=== PATIENT | female | born 1955 | race American Indian/Alaskan Native ===

== ENCOUNTER → 2018-03-10 | Emergency (ER) | payer OTHER ==
[~2018-03-10] VITALS: Ht 152.4 cm; Wt 127.0 kg
[~2018-03-10] MED LIST: BAYER CHEWABLE81 MG PO; CALCIUM 1,0001 EACH PO; CARVEDILOL3.125 MG PO; CLONAZEPAM2 MG PO; CYCLOBENZAPRINE10 MG PO; FISH OIL 1,0001 EAC3 PO; FUROSEMIDE20 MG PO; HYDROCODON-ACE1 EAC8 PO; K-TAB ER20 MEQ PO; KEFLEX500 MG PO; LANTUS100 UNITS/ SUB-Q; LISINOPRIL40 MG PO; MAGNESIUM200 MG PO; NOVOLOG MI100 UNITS/ SUB-Q; NOVOLOG100 UNIT/2; NOVOLOG100 UNITS/ IV; POTASSIUM CHLO20 ME1 PO; TRAZODONE HCL50 MG PO
--- OUTSIDE RECORDS SUMMARY | 2018-03-10 00:34 | XMS | Clinical Summary ---
Demographics + + + | Address | [address] | | | [place] [address] | + + + | Home Phone | | + + + | Preferred Language | Unknown | + + + | Marital Status | | + + + | Caodaism Affiliation | Unknown | + + + | Race | Unknown | + + + | Ethnic Group | Unknown | + + + Author + + + | Author | [facility] | + + + | Organization | [facility] | + + + | Address | Unknown | + + + | Phone | Unavailable | + + + Support + + +---------+ + | Name | Relationship | Address | Phone | + + +---------+ + | No,Contact | ECON | Unknown | | + + +---------+ + Care Team Providers + +------+ + | Care Computer Support Specialist Instructor Name | Role | Phone | + +------+ + | Renee Worrell CORE ASSEMBLY SUPERVISOR | PP | | + +------+ + Allergies No Known Allergies Current Medications + + +-------+---------+------+------+-------+ | Prescription | Sig. | Disp. | Refills | Star | End | Statu | | | | | | t | Date | s | | | | | | Date | | | + + +-------+---------+------+------+-------+ | phenazopyridine | Take 100 mg by mouth | | | | | Activ | | (PYRIDIUM) 100 MG | 3 (three) times | | | | | e | | tablet | daily as needed. | | | | | | + + +-------+---------+------+------+-------+ | nitrofurantoin | Take 100 mg by mouth | | | | | Activ | | (MACRODANTIN) 100 MG | 4 (four) times | | | | | e | | capsule | daily. | | | | | | + + +-------+---------+------+------+-------+ | | Take 1 tablet by | | | | | Activ | | hydrocodone-acetamin | mouth every 6 (six) | | | | | e | | ophen (NORCO) 10-325 | hours as needed. | | | | | | | MG per tablet | | | | | | | + + +-------+---------+------+------+-------+ | alprazolam (XANAX) | Take 0.25 mg by | | | | | Activ | | 0.25 MG tablet | mouth 3 (three) | | | | | e | | | times daily as | | | | | | | | needed. | | | | | | + + +-------+---------+------+------+-------+ | nystatin [id number] | Place 1 tablet | | | | | Activ | | UNIT vaginal tablet | vaginally nightly. | | | | | e | + + +-------+---------+------+------+-------+ | | Take 1 tablet by | | | | | Activ | | sulfamethoxazole-tri | mouth 2 (two) times | | | | | e | | methoprim (BACTRIM | daily. | | | | | | | DS) 800-160 MG per | | | | | | | | tablet | | | | | | | + + +-------+---------+------+------+-------+ | ergocalciferol | Take 50,000 Units by | | | | | Activ | | (DRISDOL) [id number] | mouth every 30 | | | | | e | | UNITS capsule | (thirty) days. | | | | | | + + +-------+---------+------+------+-------+ | ibuprofen | Take 800 mg by mouth | | | | | Activ | | (ADVIL,MOTRIN) 800 | every 6 (six) hours | | | | | e | | MG tablet | as needed. | | | | | | + + +-------+---------+------+------+-------+ | calcium-vitamin D | Take 1 tablet by | | | | | Activ | | (CALCARB 600/D) | mouth daily. | | | | | e | | 600-400 MG-UNIT per | | | | | | | | tablet | | | | | | | + + +-------+---------+------+------+-------+ | metformin | Take 500 mg by mouth | | | | | Activ | | (GLUCOPHAGE) 500 MG | 4 (four) times | | | | | e | | tablet | daily. | | | | | | + + +-------+---------+------+------+-------+ | lisinopril | Take 40 mg by mouth | | | | | Activ | | (PRINIVIL,ZESTRIL) | daily. | | | | | e | | 40 MG tablet | | | | | | | + + +-------+---------+------+------+-------+ | cyclobenzaprine | Take 10 mg by mouth | | | | | Activ | | (FLEXERIL) 10 MG | 3 (three) times | | | | | e | | tablet | daily as needed. | | | | | | + + +-------+---------+------+------+-------+ | fluconazole | Take 200 mg by mouth | | | | | Activ | | (DIFLUCAN) 200 MG | once a week. | | | | | e | | tablet | | | | | | | + + +-------+---------+------+------+-------+ | insulin glargine | Inject into the | | | | | Activ | | (LANTUS) 100 UNIT/ML | skin nightly. | | | | | e | | injection | | | | | | | + + +-------+---------+------+------+-------+ Active Problems + + + | Problem | Noted Date | + + + | Hypertension | 05/05/2011 | + + + | Hyperlipidemia | 05/05/2011 | + + + | Vitamin D deficiency | 05/05/2011 | + + + Social History + +-------+ +--------+------+ | Tobacco Use | Types | Packs/Day | Years | Date | | | | | Used | | + +-------+ +--------+------+ | Never Assessed | | | | | + +-------+ +--------+------+ + + + | Sex Assigned at | Date Recorded | | | | + + + | Not on file | | + + + Plan of Treatment Not on file Results Not on filefrom Last 3 Months"
--- OUTSIDE RECORDS SUMMARY | 2018-03-10 00:34 | XMS | Clinical Summary ---
Demographics + + + | Address | [address] | | | [place] [address] | + + + | Home Phone | | + + + | Preferred Language | Unknown | + + + | Marital Status | Unknown | + + + | Mandaeism Affiliation | Unknown | + + + | Race | Unknown | + + + | Ethnic Group | Unknown | + + + Author + + + | Author | [facility] | | | and [facility] | + + + | Organization | [facility] | | | and [facility] | + + + | Address | Unknown | + + + | Phone | Unavailable | + + + Support + + + + + | Name | Relationship | Address | Phone | + + + + + | Garfield Barboza | RAMESH | [address] | | | | | [place] | | | | | [address] | | + + + + + Care Team Providers + +------+ + | Care Account Processor Name | Role | Phone | + +------+ + | Flor Estevez PA-C | PP | | + +------+ + Allergies + + + + + + | Active Allergy | Reactions | Severity | Noted | Comments | | | | | Date | | + + + + + + | Codeine | | | 11/17/19 | | | | | | 14 | | + + + + + + | Gabapentin | | | 11/17/19 | | | | | | 14 | | + + + + + + | Paroxetine | | | 11/17/19 | | | | | | 14 | | + + + + + + | Salsalate | | | 11/17/19 | | | | | | 14 | | + + + + + + Current Medications + + +--------+---------+------+------+-------+ | Prescription | Sig. | Disp. | Refills | Star | End | Statu | | | | | | t | Date | s | | | | | | Date | | | + + +--------+---------+------+------+-------+ | aspirin 81 mg EC | Take 81 mg by mouth | | | | | Activ | | tablet | Daily. | | | | | e | + + +--------+---------+------+------+-------+ | calcium-vitamin D | Take 600 mg by mouth | | | | | Activ | | (CALCIUM 600 + D) | 2 times daily. | | | | | e | | 600-400 MG-UNIT TABS | | | | | | | + + +--------+---------+------+------+-------+ | docusate sodium | Take 200 mg by mouth | | | | | Activ | | (COLACE) 100 mg | nightly. | | | | | e | | capsule | | | | | | | + + +--------+---------+------+------+-------+ | fluocinonide | Apply topically 2 | | | | | Activ | | (LIDEX) 0.05% cream | times daily. A small | | | | | e | | | amount | | | | | | + + +--------+---------+------+------+-------+ | insulin glargine | Inject 50 Units | | | | | Activ | | (LANTUS SOLOSTAR) | under the skin 2 | | | | | e | | 100 units/mL | times daily. | | | | | | | injection pen | | | | | | | + + +--------+---------+------+------+-------+ | | Take 1 tablet by | | | | | Activ | | HYDROcodone-acetamin | mouth 3 times daily. | | | | | e | | ophen (NORCO) 10-325 | | | | | | | | mg per tablet | | | | | | | + + +--------+---------+------+------+-------+ | hydrocortisone 1% | Apply topically 4 | | | | | Activ | | cream | times daily as | | | | | e | | | needed. Apply small | | | | | | | | amount to affected | | | | | | | | area | | | | | | + + +--------+---------+------+------+-------+ | insulin aspart | Inject under the | | | | | Activ | | (NOVOLOG FLEXPEN) | skin 3 times daily | | | | | e | | 100 units/mL | (before meals). 40 | | | | | | | injection pen | units at breakfast, | | | | | | | | 45 units at lunch, | | | | | | | | 45 units at supper | | | | | | + + +--------+---------+------+------+-------+ | magnesium oxide | Take 400 mg by mouth | | | | | Activ | | (MAG-OX) 400 mg | Every other day. | | | | | e | | tablet | | | | | | | + + +--------+---------+------+------+-------+ | OMEGA 3 1000 MG | Take 2,000 mg by | | | | | Activ | | CAPS | mouth 3 times daily. | | | | | e | + + +--------+---------+------+------+-------+ | potassium chloride | Take 10 mEq by mouth | | | | | Activ | | SA (CHASE MAN) | Daily. Every day | | | | | e | | 10 MEQ tablet | when taking | | | | | | | | furosemide | | | | | | + + +--------+---------+------+------+-------+ | carvedilol (COREG) | Take 25 mg by mouth | | | | | Activ | | 12.5 mg | 2 times daily (with | | | | | e | | tabletIndications: | breakfast & dinner). | | | | | | | Chronic kidney | | | | | | | | disease, stage I, | | | | | | | | Type II or | | | | | | | | unspecified type | | | | | | | | diabetes mellitus | | | | | | | | without mention of | | | | | | | | complication, not | | | | | | | | stated as | | | | | | | | uncontrolled, | | | | | | | | Essential | | | | | | | | hypertension, Edema | | | | | | | + + +--------+---------+------+------+-------+ | chlorthalidone 25 | Take 1 tablet by | 30 | 1 | 08 | | Activ | | mg tablet | mouth Daily. | tablet | | 12/20 | | e | | | | | | 15 | | | + + +--------+---------+------+------+-------+ | furosemide (LASIX) | Take 1 tablet by | 30 | 0 | 10/2 | | Activ | | 40 mg | mouth Daily. | tablet | | 10/20 | | e | | tabletIndications: | | | | 15 | | | | Chronic kidney | | | | | | | | disease, stage I, | | | | | | | | Type 2 diabetes | | | | | | | | mellitus with | | | | | | | | diabetic nephropathy | | | | | | | | ([facility]), Accelerated | | | | | | | | hypertension, Edema | | | | | | | + + +--------+---------+------+------+-------+ | DULoxetine | Take 30 mg by mouth | | | | | Activ | | (CYMBALTA) [address] | nightly. | | | | | e | | capsule | | | | | | | + + +--------+---------+------+------+-------+ | topiramate | Take 25 mg by mouth | | | | | Activ | | (TOPAMAX) 25 mg | nightly. Take 1 | | | | | e | | tablet | tablet before bed x | | | | | | | | 7 days then increase | | | | | | | | to 2 tablets | | | | | | | | nightly. | | | | | | + + +--------+---------+------+------+-------+ | hydrOXYzine | Take 25 mg by mouth | | | | | Activ | | hydrochloride | every 6 hours as | | | | | e | | (ATARAX) 25 mg | needed for Itching. | | | | | | | tablet | Take 1-2 tablets PRN | | | | | | | | for anxiety. | | | | | | + + +--------+---------+------+------+-------+ Active Problems + + + | Problem | Noted Date | + + + | Type 2 diabetes mellitus with diabetic nephropathy (HCC) | 02/26/2015 | + + + | Edema | 12/24/2014 | + + + | Essential hypertension | 12/24/2014 | + + + | Chronic kidney disease, stage I | 12/24/2014 | + + + Resolved Problems + + + + | Problem | Noted | Resolved | | | Date | Date | + + + + | Type II or unspecified type diabetes mellitus without mention of | 12/25/19 | | | complication, not stated as uncontrolled | 15 | 6 | + + + + Family History + + +------+ + | Medical History | Relation | Name | Comments | + + +------+ + | Diabetes | Father | | | + + +------+ + | Lupus | Mother | | | + + +------+ + + +------+ + + | Relation | Name | Status | Comments | + +------+ + + | Father | | | | + +------+ + + | Mother | | | | + +------+ + + Social History + + + +--------+ + | Tobacco Use | Types | Packs/Day | Years | Date | | | | | Used | | + + + +--------+ + | Former Smoker | Cigarettes | 1 | | 05/03/1972 - | | | | | | 05/03/1998 | + + + +--------+ + + +---+---+---+ | Smokeless Tobacco: | | | | | Never Used | | | | + +---+---+---+ + + | Comments: Smoker in home | + + + + +---------+ + | Alcohol Use | Drinks/We | oz/Week | Comments | | | ek | | | + + +---------+ + | No | | | | + + +---------+ + + + + | Sex Assigned at | Date Recorded | | | | + + + | Not on file | | + + + Last Filed Vital Signs + + + + | Vital Sign | Reading | Time Taken | + + + + | Blood Pressure | 202/99 | 10/21/2015 1825 PDT | + + + + | Pulse | 76 | 12/20/20139 PDT | + + + + | Temperature | 37.1 C (98.8 F) | 10/21/2015 1444 PDT | + + + + | Respiratory Rate | 12 | 12/20/20139 PDT | + + + + | Oxygen Saturation | 96% | 12/20/20131048 PDT | + + + + | Inhaled Oxygen | - | - | | Concentration | | | + + + + | Weight | 138.4 kg (305 lb 1.9 | 10/21/20151443 PDT | | | oz) | | + + + + | Height | 151.8 cm (4' 11.75") | 12/20/20131048 PDT | + + + + | Body Mass Index | 60.09 | 10/21/20151443 PDT | + + + + Plan of Treatment + + + + + | Health Maintenance | Due Date | Last Done | Comments | + + + + + | Vaccine: | | | | | Dtap/Tdap/Td (1 - | 6 | | | | Tdap) | | | | + + + + + | Vaccine: Zoster (1 | | | | | of 2) | 7 | | | + + + + + | Vaccine: Influenza | | | | | (#1) | 8 | | | + + + + + Results Not on filefrom Last 3 Months Insurance + +--------+ +--------+ +---------+ | Payer | Benefi | Subscriber | Type | Phone | Address | | | t Plan | ID | | | | | | / | | | | | | | Group | | | | | + +--------+ +--------+ +---------+ | [employer] | [employer] | [id number] | Medica | [phone] | | MEDICAID HMO | HEALTH | | id | [phone] | | | | MDCD | | | | | | | [place]MO [place] | | | | | + +--------+ +--------+ +---------+ + +--------+ +--------+ + + | Guarantor Name | Accoun | Relation to | Date | Phone | Billing Address | | | t Type | Patient | of | | | | | | | | | | + +--------+ +--------+ + + | MARLEN MERIDA | Person | Self [birth year] | Work: | [address] | | | al/Fam | | 1954 | [phone] | [place] [address] | | | [place] | | | [phone]: | | | | | | | | | | | | | | [phone] | | | | | | | [phone] | | + +--------+ +--------+ + +
--- OUTSIDE RECORDS SUMMARY | 2018-03-10 00:35 | XMS | Clinical Summary ---
Demographics + + + | Address | [address] | | | [place] [address] | + + + | Home Phone | | + + + | Preferred Language | Unknown | + + + | Marital Status | Unknown | + + + | Confucianism Affiliation | Unknown | + + + | Race | Unknown | + + + | Ethnic Group | Unknown | + + + Author + + + | Author | [facility] | | | and [facility] | + + + | Organization | [facility] | | | and [facility] [...] [place] | | | | | [address] | | + + + + + Care Team Providers + +------+ + | Care Racetrack Steward Name | Role | Phone | + [...] | | | | | | | ([facility]), [facility] | | | | | | [...] | [employer] | MODA | [id number] | Medica | [phone] | | | [...] | 1954 | [phone] | [place] [address] | | | [place] | | | [phone] Home: | | | | | | | | | | | | | | [phone] | | | | | | | [address] | | + +--------+ +--------+ + +
--- OUTSIDE RECORDS SUMMARY | 2018-03-10 00:35 | XMS | Clinical Summary ---
Demographics + + + | Address | [address] | | | [place] [address] | + + + | Home Phone | | + + + | Preferred Language | Unknown | + + + | Marital Status | | + + + | Latter-Day Affiliation | Unknown | + + + | Race | Unknown | + + + | Ethnic Group | Unknown | + + + Author + + + | Author | [facility] | + + + | Organization | [facility] | + + + | Address | Unknown | + + + | Phone | Unavailable | + + + Support + + +---------+ + | Name | Relationship | Address | Phone | + + +---------+ + | No,Contact | ECON | Unknown | | + + +---------+ + Care Team Providers + +------+ + | Care Front Maker Lockstitch Name | Role | Phone | + +------+ + | Renee Worrell SENIOR J2EE DEVELOPER | PP | | + +------+ + [...] | | + + +-------+---------+------+------+-------+ | nystatin [id number] | Place 1 tablet | | | [...] | | | Activ | | (DRISDOL) 36622 | mouth every 30 | | | [...]
== END ==
LOC: ED 00:25
DX: N12 Tubulo-interstitial nephritis, not specified as acute or chronic (principal); E11.9 Type 2 diabetes mellitus without complications; I10 Essential (primary) hypertension; Z79.4 Long term (current) use of insulin; Z79.899 Other long term (current) drug therapy; Z88.8 Allergy status to other drugs, medicaments and biological substances; Z88.1 Allergy status to other antibiotic agents; Z79.82 Long term (current) use of aspirin
CPT/HCPCS: 36415; 74176; 80053; 81001; 83605; 83690; 85025; 96361; 96365; 96375; 99284; J0692; J1170; J1885; J2405; J7030; J7060

== ENCOUNTER 2020-10-03 13:48 | Emergency (ER) | payer OTHER ==
[~2020-10-03] VITALS: Ht 152.4 cm; Wt 127.0 kg
[2020-10-03] MEDS ORDERED: ZOFRAN4 MG PO (20:17)
[2020-10-03] MEDS ORDERED: BACTRIM DS TAB1 EACH PO (20:17)
--- NOTE | 2020-10-04 07:11 | EKG ---
[facility] [address] [place], [place] [address] Signed Normal sinus rhythm Normal ECG No previous ECGs available Confirmed by SANJEEV REYES MD ([id number]) on 10/04/2020 7:10:55 AM Electronically Signed By: SANJEEV REYES MD 10/04/20 0711 PATIENT NAME: MARLEN FOLEY Electrocardiogram DATE OF : 59 PHYSICIAN: SANJEEV REYES MD REPORT #: [id number] REPORT IS CONFIDENTIAL AND NOT TO BE RELEASED WITHOUT AUTHORIZATION
== END 2020-10-03 20:35 | disposition home or self-care (01) ==
LOC: ED 13:48
DX: R11.2 Nausea with vomiting, unspecified (principal); N39.0 Urinary tract infection, site not specified; E86.0 Dehydration; I10 Essential (primary) hypertension; E11.9 Type 2 diabetes mellitus without complications; Z87.891 Personal history of nicotine dependence; Z88.8 Allergy status to other drugs, medicaments and biological substances; Z88.1 Allergy status to other antibiotic agents; Z79.899 Other long term (current) drug therapy; Z79.4 Long term (current) use of insulin
CPT/HCPCS: 80053; 81001; 83690; 83735; 84484; 85025; 87077; 87088; 87186; 93005; 93010; 96374; 96375; 99284-25; J0360; J0780; J1200; J2405; J2765; J7030

== ENCOUNTER 2022-05-27 18:40 | Inpatient (IN) | payer MEDICARE, OTHER ==
[~2022-05-27] VITALS: Ht 152.4 cm; Wt 105.0 kg
[~2022-05-27 18:40] MED LIST changes: +BACTRIM DS TAB1 EACH PO; -CARVEDILOL3.125 MG PO; +COREG25 MG PO; +COZAAR50 MG PO; -FISH OIL 1,0001 EAC3 PO; +FISH OIL 1,0001 EAC9 PO; -LISINOPRIL40 MG PO; +NOVOLOG FL100 UNIT/1 SUB-Q; -NOVOLOG100 UNIT/2; +ZOFRAN4 MG PO
--- NOTE | 2022-05-27 22:10 | NUR ---
REPORT RECEIVED FROM RODRIGUEZ MANN OVER TELEPHONE. THIS RN INFORMED THE ER WILL CALL WHEN THEY ARE BRINGING THE PT DOWN TO MED/SURG.
--- NOTE | 2022-05-27 22:50 | NUR ---
PT BROUGHT TO ROOM BY RODRIGUEZ MANN VIA STRETCHER. PT ABLE TO STAND AND AMBULATE FROM STRETCHER TO BED. IV INFUSING WNL. GAVIOTA RN IN TO ASSIST WITH ADMISSION. PANNUS AND GROIN REDDENED. TOILET PAPER LIKE PARTICLES NOTED IN PANNUS AREA. PANNUS CLEANED WITH CHLORAHEXADINE WIPES, DRIED. DESENEX POWDER APPLIED. SCRATCH NOTED TO Yony RANDALL. VITALS COMPLETE. PT REQUESTING THIS RN TO CALL AND INFROM THAT PT IS IN THE HOSPITAL. PT STATES "IT IS OKAY" TO LEAVE A MESSAGE 'S PHONE IS OFF. MESSAGE LEFT. PT REPORTING STABBING, SHARP PAIN 6/10 IN L SHOULDER. PT STATES SHE HAS HAD IT "SINCE M[place]." PT STATES IT IS HER "ROTATOR CUFF." WHEN ASKED IF PT HAS SEEN A PROVIDER FOR HER SHOULDER PT STATES "NO, BUT I HAD THE SAME PAIN IN MY RIGHT SHOULDER BEFORE." PRN TYLENOL ADMINISTERED, SEE JUL. PT REQUESTING TO ONLY TAKE HALF THE ORDERED DOSE OF TYLENOL AND STATES "I HAVE THE 500MG TABLETS AT HOME AND CUT THEM IN HALF." 2319 ASSESSMENT COMPLETE. LUNG SOUNDS CLEAR IN RUL, ARUNA, AND RLL. DIMINISHED IN LLL. BOWEL TONES ACTIVE. NO BM NOTED. PT REQUESTING TOILETING. PT AMBULATES WITH SBA AND CANE FROM BED TO RESTROOM WITH A STEADY GAIT. URINE NOTED. YELLOW IN COLOR WITH SOME WHITE SEDIMENT NOTED. PT STATES SHE "SOMETIMES" HAS NUMBNESS AND TINGLING IN HER HANDS. PT REPORTS LOSING SON LAST YEAR AND LOSING A NEIGHBOR LAST WEEK. PT REPORTS STAIRS AT HOME AND STATES "I HATE THEM." IV FLUIDS STARTED, SEE MAR. IV INFUSING WNL. WATER PROVIDED. PT LAYING IN BED SEMI-FOWLERS. RR EVEN AND UNLABORED. PT REPORTS NO OTHER NEEDS AT THIS TIME. EDUCATION ON HOW TO USE CALL LIGHT PROVIDED. PT VERBALIZED TEACHBACK OF EDUCATIONS. BED ALARM ON. CALL LIGHT IN REACH.
--- NOTE | 2022-05-28 01:00 | NUR ---
IN TO ROUND ON PT. PT REPORTING PAIN /. PT REQUESTING TOILETING. PT SBA WITH GODOY FROM BED TO RESTROOM AND BACK TO BED WITH STEADY GAIT. PT REQUESTING JELLO AND WATER. SUGAR FREE JELLO AND WATER PROVIDED. VITALS AND I&Os COMPLETE. PT REPORTS NO OTHER NEEDS AT THIS TIME. CALL LIGHT IN REACH. BED ALARM ON.
--- NOTE | 2022-05-28 01:25 | NUR ---
IN PT IS REPORTING NAUSEA. PRN NAUSEA MEDICATION ADMINISTERED, SEE MAR. PT REPORTS NO OTHER NEEDS AT THIS TIME. CALL LIGHT IN REACH. BED ALARM ON.
--- NOTE | 2022-05-28 04:00 | NUR ---
IN TO ROUND ON PT. PT RESTING IN BED WITH EYES CLOSED AND RR EVEN AND UNLABORED. PT AWAKENS WHEN DOOR OPENS. ASSESSMENT COMPLETE. LUNG SOUNDS CLEAR. BOWEL TONES ACTIVE. PT REPORTS PAIN IN "STOMACH" 12/10 AND STATES IT IS A "BURNING" PAIN. PRN MAALOX ADMINISTERED, SEE MAR. PT REQUESTING ICE, ICE PROVIDED. PT REPORTS NO OTHER NEEDS AT THIS TIME. CALL LIGHT IN REACH. BED ALARM ON. IV INFUSING WNL.
--- NOTE | 2022-05-28 05:49 | NUR ---
IN TO ANSWER CALL LIGHT. PT REQUESTING TOILETING. SBA WITH GODOY FROM BED TO RESTROOM AND BACK TO BED. PT HAS A STEADY GAIT. VITALS AND I&Os COMPLETE. PT REQUESTING ICE CHIPS, ICE CHIPS PROVIDED. PT REPORTS NO OTHER NEEDS AT THIS TIME. CALL LIGHT IN REACH. BED ALARM ON. IV INFUSTIN WNL.
--- NOTE | 2022-05-28 07:32 | NUR ---
IV PUMP ALARMING, RESOLVED. NEW BAG OF FLUIDS STARTED, SEE MAR. PT REPORTS NO PAIN AT THIS TIME. PT DENIES NAUSEA. PT REPORTS NO OTHER NEEDS AT THIS TIME. CALL LIGHT IN REACH. BED ALARM ON.
--- NOTE | 2022-05-28 08:05 | NUR ---
RECIEVED SHIFT REPORT. PT AWAKE IN BED. ICE CHIPS PROVIDED PER PT REQUEST. NEW BAG IVF HANGING. CALL LIGHT WITHIN REACH.
--- NOTE | 2022-05-28 09:00 | NUR ---
NOTIFIED DR REYES OF BP 184/75. NO NEW ORDERS AT THIS TIME.
[2022-05-28] MEDS ORDERED: CERAVE SA CREA340 GM TOP (09:40)
[2022-05-28] MEDS ORDERED: LIPITOR40 MG PO (09:41)
--- NOTE | 2022-05-28 11:24 | NUR ---
INTO PATIENT ROOM. PATIENT SLEEPING AND DOES NOT WAKE TO THE SOUND OF DOOR OPENING OR VOICE. WILL CHECK BACK WITH PATIENT THIS AFTERNOON.
--- NOTE | 2022-05-28 12:37 | NUR ---
REPORT FROM Dung NIETO RN. PATIENT ALERT AND ORIENTED IN ROOM. MEDICATIONS ADMINISTERED PER ORDERS. STANDBY ASSIST TO BR, CONTINENT OF URINE. RETURNS TO BED. REQUESTS ICE AND MAALOX. SEE EMAR, ICE PROVIDED. DENIES OTHER NEEDS. CALL LIGHT IN REACH, BED RAILS UP X2.
--- NOTE | 2022-05-28 13:22 | NUR ---
pt in bed. vitals and is and os complete. ice provided to pt. no needs at this time. call light within reach
--- NOTE | 2022-05-28 17:58 | NUR ---
LYING IN BED THIS AFTEROON. CONTINENT OF LOOSE BOWEL MOVMENT X1 AND URINE. CONTINUES ON IV FLUIDS. REMAINS ON ROOM AIR. ALERT AND ORIENTED X4.
--- NOTE | 2022-05-28 19:10 | NUR ---
REPORT RECEIVED FROM RODRIGUEZ BNEZ. PT RESTING IN BED WITH EYES CLOSED. SEMI-FOWLERS. RR EVEN AND UNLABORED. NO NEEDS IDENTIFIED AT THIS TIME. CALL LIGHT IN REACH.
--- NOTE | 2022-05-28 21:09 | NUR ---
IN TO ADMINISTER MEDICATIONS, SEE MAR. PT TAKES PO MEDICATION WITH NO ISSUES. PRN MELATONIN ADMINISTERD, SEE MAR. IV INFUSING WNL. PT REPORTS HAVING A HEADACHE 5/10 PAIN, PRN TYLENOL ADMINISTERED, SEE MAR. PT REQUESTING HALF THE DOSE OF TYLENOL. VITALS AND I&Os COMPLETE. ASSESSMENT COMPLETE. LUNG SOUNDS CLEAR. BOWEL TONES ACTIVE. PT REPORTS NAUSEA, PRN ZOFRAN ADMINISTERED, SEE MAR. PT REQUESTING WATER AND ICE CHIPS. WATER AND ICE CHIPS PROVIDED. PT REPORTS NO OTHER NEEDS AT THIS TIME. CALL LIGHT IN REACH.
--- NOTE | 2022-05-28 21:20 | NUR ---
THIS RN TAKED WITH DR. REYES OVER THE PHONE TO INFORM DR. REYES OF PTs BLOOD PRESSURE AND HEADACHE. MD AWARE, NO NEW ORDERS. THIS RN ASKED MD "AT WHAT POINT WOULD YOU LIKE US TO CALL YOU IN THE MORNING IF PTs BLOOD PRESSURE IS STILL HIGH?" MD STATES "NO NEED I WILL SEE HER IN THE MORNING."
--- NOTE | 2022-05-29 | NUR ---
IN PT ROOM FOR STANDBY ASSIST W/CANE TO BATHROOM. ABD PAD HAS SCANT AMOUNT OF SS DRAINAGE, REMOVED AND NO NEW ONE PLACED AT THIS TIME AT PT REQUEST. GARCIA CARE PERFORMED, URINE OUTPUT RECORDED. PT NOW RESTING BACK IN BED AND HAS APPETITE. JELLO AND CHICKEN BROTH PROVIDED AT THIS TIME. NEW BAG OF IV FLUIDS HANGING AND NOW INFUSING DIRECTED. NO FURTHER NEEDS AT THIS TIME, CALL LIGHT WITHIN REACH.
--- NOTE | 2022-05-29 01:01 | NUR ---
IN TO SARAH CALL LIGHT. IV PUMP ALARMING, RESOLVED. ASSESSMENT COMPLETE. PT REPORTS NO PAIN AT THIS TIME. LUNG SOUNDS CLEAR. BOWEL TONES ACTIVE. PT REQUESTING TV REMOTE, TV REMOTE PROVIDED. PT REPORTS NO OTHER NEEDS AT THIS TIME. CALL LIGHT IN REACH.
--- NOTE | 2022-05-29 03:14 | NUR ---
IN TO ANSWER CALL LIGHT. PT REQUESTING TOILETING. SBA WITH GODOY FROM BED TO RESTROOM AND BACK TO BED. PT HAS STEADY GAIT. SMALL SOFT BM NOTED. AND URINE NOTED. PT RESTING BACK IN BED. SEMI-FOWLERS. RR EVEN AND UNLABORED. PT REPORTS NO OTHER NEEDS AT THIS TIME. CALL LIGHT IN REACH. BED ALARM ON.
--- NOTE | 2022-05-29 06:00 | NUR ---
THIS RN INFROMED BY BOARD OPERATOR THAT PT IS REPORTING NAUSEA AND PAIN. THIS RN IN ROOM. PT REPORTING STOMACH IS UPSET. PRN ZOFRAN ADMINISTERED, SEE MAR. PRN MAALOX ADMINISTERED, SEE MAR. BLOOD PRESSURE RECHECKED ON RIGHT ARM, SEE VITALS. PT REPORTS NO OTHER NEEDS AT THIS TIME. CALL LIGHT IN REACH. BED ALARM ON.
--- NOTE | 2022-05-29 07:25 | NUR ---
RECIEVED SHIFT REPORT. PT RESTING IN BED, EYES CLOSED, BREATHING EVEN AND UNLABORED. CALL LIGHT WITHIN REACH
[2022-05-29] MEDS ORDERED: METRONIDAZOLE70 GM TOP (08:36)
[2022-05-29] MEDS ORDERED: ANTIFUNGAL113 GM TOP (08:37)
--- NOTE | 2022-05-29 08:37 | NUR ---
MED REC COMPLETE
--- NOTE | 2022-05-29 08:47 | NUR ---
MORNING ASSESSMENT COMPLETE. PT AWAKE IN BED. DENIES PAIN. ABX HANGING AT THIS TIME. LUNG SOUNDS CLEAR. TELE IN PLACE. DENIES FURTHER NEEDS. CALL LIGHT WITHIN REACH
--- NOTE | 2022-05-29 10:59 | NUR ---
PT RESTING IN BED, FAMILY AT BEDSIDE. CALL LIGHT WITHIN REACH
--- NOTE | 2022-05-29 11:15 | NUR ---
PT OUT TO NOTIFY RN THAT PT NEEDS HELP. RN INFORMED ME. I ASK PT HOW SHE NEEDS HELP AND SHE STATED SHE NEEDS TO USE RESTROOM. AFTER GOWNING UP, PT ASSISTED TO BATHROOM SBA. PT GARCIA AREA CLEANED BY ME PT STATED SHE IS UNABLE TO. PT UP TO CHAIR. ICE AND WARM BLANKET PROVIDED. CALL LIGHT WITHIN REACH. BS TAKEN. NO FURTHER NEEDS. CALL LIGHT WITHIN REACH
--- NOTE | 2022-05-29 12:00 | NUR ---
PT SITTING IN RECLINER EATING LUNCH. NEW BAG IVF HANGING. DENIES FURTHER NEEDS. CALL LIGHT WITHIN REACH
--- NOTE | 2022-05-29 15:26 | NUR ---
PATIENT RESTING IN BED. PATIENT STATES SHE MISSES HER CATS. PATIENT LIVES WITH HER IN HER OWN HOUSE. PATIENT IS ABLE USE A GODOY FOR BALANCE. PATIENT REQUESTING TO TO HAVE A KELSEY TO TALK TO HER. MESSAGE PASSED ON KELSEY SAMUEL.
--- NOTE | 2022-05-29 16:36 | NUR ---
ROMERO LOVELACE CONTACTED ME AND INFORMED ME THAT PT WAS REQUESTING A VISIT FROM A PANTS BUSHELER. UPON ENTERING , I FOUND PT TO BE ALERT, ORIENTED AND PLEASANT. PT BEGAN TO SHARE WITH ME THE LOSS OF HER SON TO RAY LAST YEAR. ALSO A NEED TO CONNECT WITH GOD. PT SHARED HER [place] JOURNEY AND FAMILY HISTORY. PRAYED WITH PT, GAVE HER GRIEF RESOURCES AND GAVE BLESSING, ENCOURAGEMENT AND G.POST.WILL FOLLOW
--- NOTE | 2022-05-29 19:12 | NUR ---
Received report from offgoing shift. Hourly rounding initiated
--- NOTE | 2022-05-29 20:00 | NUR ---
In pt room for rounding. Pt resting, breathing even and unlabored, no complaint of pain or discomfort, call light in reach.
--- NOTE | 2022-05-29 20:59 | NUR ---
In pt room for BG checks, VS, and assessment. Pt calm and cooperative, able to make needs known. Pt assisted to bathroom without incident, call light in reach, no complaint of pain or discomfort.
--- NOTE | 2022-05-29 21:59 | NUR ---
In pt room for medication adminstration. Hung dose of IV Remdesivir, gave regularly scheduled medications and provided more water per request. Pt in good spirits, no complaint of pain or discomfort, call light in reach.
--- NOTE | 2022-05-29 22:16 | NUR ---
IN PT ROOM TO ASSIST TO BATHROOM. pT UP AND BACK WITHOUT INCIDENT, NO COMPLAINT OF PAIN OR DISCOMFORT, CALL LIGHT IN REACH
--- NOTE | 2022-05-29 23:17 | NUR ---
In pt room for rounding. pt resting on back, call light in reach, no complaint of pain, nausea, or discomfort. Pt call light in reach
--- NOTE | 2022-05-29 23:46 | NUR ---
In pt room to change telemetry battery. Pt resting on back, no complaint of pain or discomfort, call light in reach
--- NOTE | 2022-05-30 01:20 | NUR ---
In pt room for rounding, Pt resting on back, eyes closed, telemetry in place. Pt breathing is even and unlabored, no indication of pain or discomfort, no complaints. Pt call light in reach,
--- NOTE | 2022-05-30 02:27 | NUR ---
In pt room for pt assessment. Pt resting on back, asked for a snack, was provided with diet appropriate snack and ice water. Pt talked briefly about losing her son last year, and that it was "hard on" her. Pt has no complaint of pain or discomfort, call light is in reach
--- NOTE | 2022-05-30 03:00 | NUR ---
REPORT RECEIVED FROM OFFGOING RNMONTSE.
--- NOTE | 2022-05-30 03:45 | NUR ---
PT ROUNDING. PT RESTING IN BED WITH EYES CLOSED. RESPIRATIONS EVEN AND UNLABORED. PT APPEARS TO BE SLEEPING. CALL LIGHT IN REACH.
--- NOTE | 2022-05-30 05:30 | NUR ---
PT RESTING IN BED WITH EYES CLOSED, WAKES EASILY TO DOOR OPENING. PT STATES THAT SHE HAS BEEN UNABLE TO SLEEP WELL SINCE BEING IN THE HOSPITAL. VS OBTAINED. WNL. PT UP TO BATHROOM AND BACK TO BED WITH SBA AND CANE. PT TOLERATED WELL. PT DENIES FURTHER NEEDS AT THIS TIME. TRAIN GATE ATTENDANT AT BEDSIDE AMMONIA BOX TENDER EXIT ROOM. CALL LIGHT IN REACH.
--- NOTE | 2022-05-30 07:39 | NUR ---
RECEIVED SHIFT REPORT. PT RESTING IN BED, AWAKE. PROSPECTING DRILLER AT BEDSIDE GETTING BLOOD SUGAR. CALL LIGHT WITHIN REACH. DENIES FURTHER NEEDS.
--- NOTE | 2022-05-30 08:15 | NUR ---
MORNING ASSESSMENT COMPLETE. PT RESTING IN BED, AWAKE. DENIES ANY DISCOMFORTS. ABX HANGING AT THIS TIME. PT REQUESTING A SHOWER TODAY. CALL LIGHT WITHIN REACH.
--- NOTE | 2022-05-30 12:25 | NUR ---
PT SITTING ON SIDE OF BED. PT STATES SHE IS "HALLUCINATING" AND "SEEING THINGS ON THE [place]". PT BELIEVES SHE IS JUST TIRED AND ISNT WORRIED ABOUT IT. CALL LIGHT WITHIN REACH. LUNCH SET UP. DENIES FURTHER NEEDS AT THIS TIME
--- NOTE | 2022-05-30 14:50 | NUR ---
IN ROOM TO ASK PT IF THEY WERE READY FOR SHOWER. PT IN BED, TEARFUL STATES SHE MISSES HER CATS AND IS LONELY. PT FELT BETTER WITH GETTING A SHOWER.
--- NOTE | 2022-05-30 15:15 | NUR ---
PT IN SHOWER, THIS RN IN ROOM TO ASSIST. PT ABLE TO SHOWER SELF INDEPENDENTLY. BED LINEN CHANGED.
--- NOTE | 2022-05-30 15:49 | NUR ---
AFTERNOON ASSESSMENT COMPLETE. PT SATISFIED WITH GETTING A SHOWER. ASSESSED WHERE THE SMEARING OF BLOOD WAS COMING FROM. THE LEFT OUTER LABIA, TWO OPEN ABRASIONS NOTED. DRIED AND BARRIER CREAM APPLIED. DESENEX POWDER APPLIED TO GROIN. DENIES FURTHER NEEDS, CALL LIGHT WITHIN REACH.
--- NOTE | 2022-05-30 18:23 | NUR ---
PATIENT IN BED AFTER MEAL. VITALS AND I/O'S COMPLETED. TELE REMOVED. CALL LIGHT WITHIN REACH.
--- NOTE | 2022-05-30 19:43 | NUR ---
REPORT RECEIVED FROM DAY SHIFT RN. PT LYING IN BED ALERT AND ORIENTED. DENIES NEEDS AT THIS TIME. CALL LIGHT IN REACH.
--- NOTE | 2022-05-30 21:45 | NUR ---
EVENING ASSESSMENT COMPLETE. SCHEDULED MEDS ADMIN PER EMAR. PT DENIES PAIN OR NAUSEA. DENIES SOB. OCCASIONAL COUGH NOTED. PRN ADMIN FOR SLEEP PER REQUEST. SUGAR FREE JELLO AND ICE WATER PROVIDED. PT DENIES QUESTIONS OR CONCERNS. CALL LIGHT IN REACH.
--- NOTE | 2022-05-31 01:24 | NUR ---
PT AWAKE IN BED. REPORTS FEELING RESTLESS. REQUESTING "SOMETHING WARM" TO EAT. CHICKEN NOODLE SOUP PROVIDED.
--- NOTE | 2022-05-31 03:48 | NUR ---
PT LYING IN BED RESTING WITH EYES CLOSED. RESPIRATIONS EVEN. CALL LIGHT IN REACH.
--- NOTE | 2022-05-31 06:53 | NUR ---
PT RESTING WITH EYES CLOSED. AWAKENS EASILY. VS AND I&O COMPLETE. PT DENIES PAIN OR NAUSEA. DENIES SOB. SUGAR FREE JELLO AND ICE WATER PROVIDED. PT DENIES FURTHER NEEDS AT THIS TIME. CALL LIGHT IN REACH.
--- NOTE | 2022-05-31 07:29 | NUR ---
RECIEVED SHIFT REPORT. PT SITTING UP ON THE SIDE OF THE BED. REPORTS UNABLE TO HAVE A BM. SUGGESTED MIRALAX AND PT REFUSED AT THIS TIME. PT FEELS HER STOMACH WONT BE ABLE TO HANDLE MIRALAX AND WANTS TO WAIT TO SEE IF BREAKFAST STIMULATES A BM. CALL LIGHT WITHIN REACH. DENIES FURTHER NEEDS.
--- NOTE | 2022-05-31 08:40 | NUR ---
MORNING ASSESSMENT COMPLETE. UNABLE TO HAVE A BM. PRN SUPPOSITORY ORDERED. CALL LIGHT WITHIN REACH.
--- NOTE | 2022-05-31 08:56 | NUR ---
PT RESTING IN BED, AWAKE. ATE 75% OF BREAKFAST. STILL UNABLE TO HAVE A BM. PT REFUSED LOVENOX INJECTION. CALL LIGHT WITHIN REACH
--- NOTE | 2022-05-31 11:17 | NUR ---
PT RESTING IN BED, AWAKE. CALL LIGHT WITHIN REACH
--- NOTE | 2022-05-31 12:15 | NUR ---
PT SET UP FOR LUNCH, SITTING IN RECLINER. REQESTED SUPPOSITORY GIVEN AFTER LUNCH. CALL LIGHT WITHIN REACH. DENIES FURTHER NEEDS
--- NOTE | 2022-05-31 12:18 | NUR ---
PT ABLE TO HAVE A BM. NO LONGER REQUESTING SUPPOSITORY.
[2022-05-31] MEDS ORDERED: CEFPODOXIME PR200 MG PO (12:52)
--- NOTE | 2022-05-31 14:06 | NUR ---
DISCHARGE INSTRUCTIONS REVIEWED WITH PATIENT. PHARMACY IN TO TALK WITH PATIENT. VITALS ARE STABLE. RIGHT ARM IV REMOVED WITH CATHETER INTACT. PATIENT IS CALLING FOR A RIDE AND WILL LET US KNOW WHEN THEY ARE HERE.
== END 2022-05-31 14:40 | disposition home or self-care (01) | DRG 178 ==
LOC: ED 18:40 → MS 22:17
PROVIDERS: ADMIT Internal Medicine; ATTEND Internal Medicine
PROC: XW033E5 Introduction of Remdesivir Anti-infective into Peripheral Vein, Percutaneous Approach, New Technology Group 5 (ICD-10-PCS; principal; 2022-05-27)
PROC: 3E0333Z Introduction of Anti-inflammatory into Peripheral Vein, Percutaneous Approach (ICD-10-PCS; 2022-05-27)
DX: U07.1 COVID-19 (principal); N10 Acute pyelonephritis; N17.9 Acute kidney failure, unspecified; N20.0 Calculus of kidney; I12.9 Hypertensive chronic kidney disease with stage 1 through stage 4 chronic kidney disease, or unspecified chronic kidney disease; N18.9 Chronic kidney disease, unspecified; E86.0 Dehydration; E11.22 Type 2 diabetes mellitus with diabetic chronic kidney disease; Z85.3 Personal history of malignant neoplasm of breast; Z90.5 Acquired absence of kidney; Z98.51 Tubal ligation status; Z90.49 Acquired absence of other specified parts of digestive tract; Z90.710 Acquired absence of both cervix and uterus; Z87.891 Personal history of nicotine dependence; Z88.1 Allergy status to other antibiotic agents; Z88.8 Allergy status to other drugs, medicaments and biological substances; Z79.4 Long term (current) use of insulin; Z79.899 Other long term (current) drug therapy
CPT/HCPCS: 36415; 51701; 51798; 71045; 74176; 80048; 80053; 81001; 82010; 83036; 83605; 83690; 83735; 84484; 85025; 87502; 99285-25; A9270; J0248; J0696; J1100; J1650; J1815; J2405; J7030; J7050; J8540; U0003